=== PATIENT | male | born 1970 | race American Indian/Alaskan Native ===

== ENCOUNTER 2018-09-04 09:59 | Day surgery (SDC) | payer OTHER ==
[~2018-09-04 09:59] MED LIST: NACL 0.9% 1000 ML 1,000 ML IV SCH
--- NOTE | 2018-09-04 11:56 | Anesthesia Day of Surgery ---
Anesthesia Day of Surgery - Day of Surgery Patient Examined: Yes Patient H&P Reviewed: Yes Patient is NPO: Yes Beta Blockers: Yes
--- NOTE | 2018-09-04 11:57 | Anesthesia Consultation ---
Anesthesia Consult and Med Hx Date of service: 09/04/18 - Airway Anesthetic Teeth Evaluation: Good ROM Head & Neck: Adequate Mental/Hyoid Distance: Adequate Mallampati Class: Class II Intubation Access Assessment: Good - Pre-Operative Health Status ASA Pre-Surgery Classification: ASA3 Proposed Anesthetic Plan: MAC - Cardiovascular System Hx Hypertension: Yes - Gastrointestinal Hx Gastroesophageal Reflux Disease: Yes - Endocrine Hx Non-Insulin Dependent Diabetes: No - Other Systems Hx Obesity: Yes
[2018-09-04] MEDS ORDERED: DIPRIVAN 10 MG/ML IV ONE ×3 (11:59)
[2018-09-04] MEDS ORDERED: XYLOCAINE 1% 20 mL ONE (12:02)
--- NOTE | 2018-09-04 12:35 | Procedure Note ---
Date of procedure: 09/04/18 Pre-op diagnosis: Abdominal Pain/ GERD/ Colon Polyp Screening/ F/H/O Cancer Post-op diagnosis: other (Moderat,Erosive Esophagitis,Gastritis,Duodenitis/ Extensive,Scattered Diverticular Disease/ Solitary,Small sigmoid Polyp (possibly Hyperplastic)) Procedure: EGD with Biopsy and Colonoscopy with Biopsy Anesthesia: GERRY Surgeon: TRAVON UMAÑA Estimated blood loss: minimal Pathology: list Specimen disposition: to lab Condition: stable Disposition: same day (Treat with PPI and encourage fiber intake and avoid aspirin and NSAID for 5 days. follow up in 1 to 2 weeks ([phone]).)
--- NOTE | 2018-09-04 12:40 | Operative Report ---
PROCEDURE: Colonoscopy with biopsy. INDICATIONS: This is a 47-year-old -[place] gentleman with a family history of cancer. The patient has a family history of pancreatic cancer. He has an underlying history of diabetes mellitus. Colonoscopy was done as part of colon polyp screening. DESCRIPTION OF PROCEDURE: The procedure was done after getting informed consent with MAC anesthesia. Instrument was passed through the rectum onto the cecum, which was identified by the ileocecal valve and the appendiceal orifice. Visualization was fair to good. The scope was retroflexed in the cecum and also withdrawn up to the hepatic flexure and reintroduced. No additional pathology was noted. By these maneuvers, the colon had scattered diverticula throughout the colon involving the proximal transverse and most commonly in the left colon. In the sigmoid, there was a solitary small polyp noted, possibly hyperplastic that was removed by cold biopsy and the rectum appeared normal on the retroverted view. There was minimal bleeding from the biopsy sites. No complications associated with the procedure. ASSESSMENT: Colon polyp screening, solitary small sigmoid polyp, possibly hyperplastic noted, removed by cold biopsy extensively. Scattered diverticular disease, most pronounced in the left colon. The patient will be encouraged to take fiber supplements, avoid aspirin and aspirin-related products for the next few days and follow up in the office in 1-2 weeks' time. The patient will also be placed on a PPI and because of the presence of moderate erosive esophagitis, gastritis and duodenitis is noted by the EGD. Procedure was done in the GI lab with assistance of anesthesia, in the presence and assistance of RN, Dolores Cleary and alvaro Friedman. The patient again will be asked to follow up in the office in 1-2 weeks' time. JOB# [id number] MARIANA/IRLANDA
--- NOTE | 2018-09-04 13:11 | Operative Report ---
PROCEDURE: EGD with biopsy. INDICATIONS: A 47-year-old -[place] gentleman who has underlying history of diabetes mellitus type 2. Lately, he has been having some abdominal pain and discomfort. He also has a family history of cancer with family members having pancreatic cancer. EGD was done to make sure there was not any significant upper GI pathology present. The procedure was done after getting informed consent with MAC anesthesia. Instrument was passed through the hypopharynx into the esophagus, which showed moderate erosive esophagitis. Stomach showed gastritis. Biopsy was done from the gastric antrum and the gastric body. Additional biopsy was also done from the distal esophagus to assess for the severity of the esophagus. The pylorus is patent. The duodenum in the first portion showed some mild duodenitis. Second portion appeared normal. There was no evidence of any peptic ulcer disease. There was minimal bleeding from the biopsy sites and no complications associated with the procedure. ASSESSMENT: Gastroesophageal reflux disease symptoms, abdominal pain, moderate erosive esophagitis, gastritis, duodenitis. No peptic ulcer disease noted. PLAN: To treat the patient with PPI, have the patient avoid aspirin and aspirin-related products for the next few days and to do a colonoscopy as part of colon polyp screening, have the patient follow up in the office in 1-2 weeks' time. The procedure was done in the GI lab with the assistance of anesthesia and the presence and assistance of RN, Dolores Cleary and alvaro Friedman. JOB# [id number] MARIANA/IRLANDA
[2018-09-04 13:38] VITALS: BP 176/115
== END 2018-09-04 10:00 | disposition home or self-care (01) ==
LOC: GIO 09:59
DX: K21.0 Gastro-esophageal reflux disease with esophagitis (principal); K63.5 Polyp of colon; K29.70 Gastritis, unspecified, without bleeding; K31.89 Other diseases of stomach and duodenum; K22.8 Other specified diseases of esophagus; K29.80 Duodenitis without bleeding; K57.30 Diverticulosis of large intestine without perforation or abscess without bleeding; R10.9 Unspecified abdominal pain; I10 Essential (primary) hypertension; K21.9 Gastro-esophageal reflux disease without esophagitis; E66.9 Obesity, unspecified; Z80.0 Family history of malignant neoplasm of digestive organs; Z91.013 Allergy to seafood; Z79.899 Other long term (current) drug therapy; Z68.34 Body mass index [BMI] 34.0-34.9, adult
CPT/HCPCS: 43239; 45380; 88305; 88312; 88342; J2704; J7030